=== PATIENT | male | born 1960 | race Caucasian/White ===

== ENCOUNTER 2017-11-29 04:59 | Emergency (ER) | payer BC, OTHER ==
[2017-11-29] MEDS ORDERED: DOXYCYCLINE HYCLATE 100 MG CAPSULE PO ONE ×2 (05:19→05:37)
[2017-11-29 05:20] VITALS: BP 138/78; PULSE 67; TEMP 97.9; BMI 24.3
--- NOTE | 2017-11-29 05:22 | PDOC ---
History of Present Illness - General History Source: Patient Exam Limitations: No Limitations - History of Present Illness Initial Comments: 11/29/17 05:22 The patient is a 57 year old male, with a significant PMH of HTN and past ID (s/ p stent) who presents to the emergency department for evaluation of ticks. The patient reports fishing today with his friends and states he had to walk through grass at about [place]. He reports pulling 2 ticks off of him at the fishing site but noticed another one still attached on his left thigh at home, prompting his visit. The patient notes he also went fishing on Saturday and pulled multiple ticks off of his body at the site and at home throughout the night. The patient states he is outdoors very often. The patient denies chest pain, shortness of breath, headache and dizziness. Denies fever, chills, nausea, vomit, diarrhea and constipation. Denies dysuria, frequency, urgency and hematuria. Allergies: NKA Past surgical history: Cardiac stent placement. Social history: Current everyday smoker. No reported alcohol or drug use. PCP: Dr. Smith <Marino Jackson - Last Filed: 11/29/17 05:22> - General History Source: Patient Exam Limitations: No Limitations <Marino Yang - Last Filed: 11/29/17 05:26> - General Chief Complaint: Bite Stated Complaint: TICK Time Seen by Provider: 11/29/17 05:05 Past History <Marino Jackson - Last Filed: 11/29/17 05:22> - Past Medical History Cardiac Disorders: Yes HTN: Yes Hypercholesterolemia: Yes - Surgical History Cardiac Surgery: Yes - Suicide/Smoking/Psychosocial Hx Smoking History: Current every day smoker Have you smoked in the past 12 months: No Number of Cigarettes Smoked Daily: 40 Hx Alcohol Use: No Drug/Substance Use Hx: No Substance Use Type: None <Marino Yang - Last Filed: 11/29/17 05:26> - Past Medical History Allergies/Adverse Reactions: Allergies Allergy/AdvReac Type Severity Reaction Status Date / Time No Known Allergies Allergy Verified 11/29/17 05:21 Home Medications: Ambulatory Orders Bacitracin 30 gm TP BID #1 oint...g. 09/04/15 Review of Systems - Review of Systems Able to Perform ROS?: Yes Comments:: 11/29/17 05:22 GENERAL/CONSTITUTIONAL: No fever or chills. No weakness. HEAD, EYES, EARS, NOSE AND THROAT: No change in vision. No ear pain or discharge. No sore throat. CARDIOVASCULAR: No chest pain or shortness of breath. RESPIRATORY: No cough, wheezing, or hemoptysis. GASTROINTESTINAL: No nausea, vomiting, diarrhea or constipation. GENITOURINARY: No dysuria, frequency, or change in urination. MUSCULOSKELETAL: No joint or muscle swelling or pain. No neck or back pain. SKIN: (+) Tick embedded in left thigh. NEUROLOGIC: No headache, vertigo, loss of consciousness, or change in strength/ sensation. ENDOCRINE: No increased thirst. No abnormal weight change. HEMATOLOGIC/LYMPHATIC: No anemia, easy bleeding, or history of blood clots. ALLERGIC/IMMUNOLOGIC: No hives or skin allergy. <Marino Jackson - Last Filed: 11/29/17 05:22> *Physical Exam - Vital Signs Last Vital Signs Temp Pulse Resp BP Pulse Ox 97.9 F 67 20 138/78 98 11/29/17 05:05 11/29/17 05:05 11/29/17 05:05 11/29/17 05:05 11/29/17 05:05 - Physical Exam Comments: 11/29/17 05:22 GENERAL: Awake, alert, and fully oriented, in no acute distress HEAD: No signs of trauma EYES: PERRLA, EOMI, sclera anicteric, conjunctiva clear ENT: Auricles normal inspection, hearing grossly normal, nares patent, oropharynx clear without exudates. Moist mucosa NECK: Normal ROM, supple, no lymphadenopathy, JVD, or masses EXTREMITIES: Normal range of motion, no edema. No clubbing or cyanosis. No cords, erythema, or tenderness NEUROLOGICAL: Cranial nerves II through XII grossly intact. Normal speech, normal gait SKIN: (+) [place] tick embedded into left proximal thigh. Tick not engorged. No target lesion. . Warm, Dry, normal turgor, no rashes noted. <Marino Jackson - Last Filed: 11/29/17 05:22> Medical Decision Making - Medical Decision Making 11/29/17 05:23 A portion of this note was documented by scribe services under my direction. I have reviewed the details of the note, within reason, and agree with the documentation with the following case summary and management plan written by me. Patient treated in the ED. Nursing notes are reviewed and incorporated into the medical decision-making. Vital signs reviewed. Peripheral IV access obtained by the nurse, laboratory studies are drawn and sent, reviewed and interpreted by myself. Vital Signs Temp Pulse Resp BP Pulse Ox 97.9 F 67 20 138/78 98 11/29/17 05:05 11/29/17 05:05 11/29/17 05:05 11/29/17 05:05 11/29/17 05:05 57-year-old male with past medical history of hypertension, coronary disease status post stent presents with tick bite the left proximal thigh. Patient reports approximate 4 days ago that he was fishing and went through high grass. Noticed that that they that he had approximately doesn't takes that removed. However today, patient noted that he had a deer tick in his left thigh. There is no rash and the patient has no other symptoms such as arthritis, palpitations , lightheadedness or other neurological cardiac sequelae. There is no target- like rash. The tick was not engorged. The tick was successfully removed with a tweezer. Given that the patient had a deer tick and had an attachment likely greater than 36 hours, patient was given 200 mg of doxycycline prophylaxis. Patient was given counseling on regards to safe practices in regards to going out endemic areas. Patient verbalizes and agrees with plan. I discussed the physical exam findings, ancillary test results and final diagnoses with the patient. I answered all of the patient's questions. The patient was satisfied with the care received and felt comfortable with the discharge plan and treatment plan. The patient will call their primary care physician within 24 hours to arrange follow-up and will return to the Emergency Department with any new, persistant or worsening symptoms. <Marino Yang - Last Filed: 11/29/17 05:26> *DC/Admit/Observation/Transfer - Attestations Scribe Attestion: 11/29/17 05:23 Documentation prepared by Marino Jackson, acting as administrative medical director for Marino Yang MD. <Marino Jackson - Last Filed: 11/29/17 05:22> - Discharge Dispostion Decision to Admit order: No <Marino Yang - Last Filed: 11/29/17 05:26> Diagnosis at time of Disposition: Tick bite Qualifiers: Encounter type: initial encounter Qualified Code(s): W57.XXXA - Bitten or stung by nonvenomous insect and other nonvenomous arthropods, initial encounter - Discharge Dispostion Disposition: HOME Condition at time of disposition: Good - Referrals Referrals: Jose Cruz Smith MD [Primary Care Provider] - - Patient Instructions Printed Discharge Instructions: How to Remove a Tick Additional Instructions: You have had a tick removed. You have also received the prophylactic antibiotic doxycyline. Please be cautious the next time you go out. - Post Discharge Activity
== END 2017-11-29 05:46 | disposition home or self-care (01) ==
LOC: JER 04:59
DX: S70.362A Insect bite (nonvenomous), left thigh, initial encounter (principal); W57.XXXA Bitten or stung by nonvenomous insect and other nonvenomous arthropods, initial encounter; Y93.89 Activity, other specified; Y92.9 Unspecified place or not applicable; I25.2 Old myocardial infarction; I10 Essential (primary) hypertension
CPT/HCPCS: 99281-25

== ENCOUNTER 2020-09-11 04:30 | Emergency (ER) | payer SELFPAY ==
[2020-09-11] MEDS ORDERED: metroNIDAZOLE 250 MG TABLET PO ONE (05:20)
[2020-09-11] MEDS ORDERED: PENICILLIN V POTASSIUM 500 MG TABLET PO ONE (05:21)
[2020-09-11] MEDS ORDERED: ACETAMINOPHEN 325 MG TABLET (FP) PO ONE (05:21)
[2020-09-11 05:33] VITALS: BP 159/82; PULSE 89; TEMP 98.9; BMI 26.6
[2020-09-11] MEDS ORDERED: ACETAMINOPHEN 325 MG TABLET (FP) ONE (06:01)
[2020-09-11] MEDS ORDERED: oxyCODONE HCL 5 MG TABLET PO ONE (06:11)
[2020-09-11] MEDS ORDERED: oxyCODONE HCL 5 MG TABLET ONE (06:14)
== END 2020-09-11 06:22 | disposition home or self-care (01) ==
LOC: JER 04:30
DX: K02.9 Dental caries, unspecified (principal); K04.7 Periapical abscess without sinus
CPT/HCPCS: 99283-25

== ENCOUNTER 2020-12-11 19:22 | Inpatient (IN) | payer OTHER ==
[2020-12-11 20:35] LABS: BASO % 1.1 % (0-2.0); EOS % 8.1 % (0-4.5); HEMATOCRIT 39.7 % (35.4-49); HEMOGLOBIN 13.2 GM/dL (11.7-16.9); LYMPH % 21.6 % (8-40); MCHC 33.2 g/dl (32.0-35.9); MEAN CELL VOLUME 90.3 fl (80-96); MEAN PLT VOLUME 7.4 fl (7.5-11.1); MONO % 7.9 % (3.8-10.2); NEUT % 61.3 % (42.8-82.8); PLATELET COUNT 243 10^3/uL (134-434); RBC 4.39 M/mm3 (4.00-5.60); RDW 14.7 % (11.9-15.9); WHITE BLOOD COUNT 9.4 K/mm3 (4.0-10.0)
[2020-12-11 20:42] LABS: INR 0.97 (0.83-1.09); PROTHROMBIN TIME (PATIENT) 11.7 SEC (9.7-13.0)
[2020-12-11 20:45] LABS: ACTIVATED PTT 25.2 SECONDS (25.2-36.5)
[2020-12-11 20:55] LABS: CHLORIDE 104 mmol/L (98-107); SODIUM 137 mmol/L (136-145)
[2020-12-11 20:56] LABS: CALCIUM 8.9 mg/dL (8.5-10.1)
[2020-12-11 20:57] LABS: ALBUMIN 3.4 g/dl (3.4-5.0); ANION GAP 5 MMOL/L (8-16); BLOOD UREA NITROGEN 13.7 mg/dL (7-18); CO2 28 mmol/L (21-32); GLUCOSE,RANDOM 100 mg/dL (74-106)
[2020-12-11 21:00] LABS: SGOT/AST 16 U/L (15-37); SGPT/ALT 15 U/L (13-61)
[2020-12-11 21:02] LABS: TOT PROT 8.1 g/dl (6.4-8.2)
[2020-12-11 21:03] LABS: ALK PHOS 107 U/L (45-117)
[2020-12-11] MEDS ORDERED: diphenhydrAMINE HCL 25 MG CAPSULE (FP) PO ONE ×2 (21:25→21:26)
[2020-12-11 22:06] LABS: BILIRUBIN,TOTAL 0.3 mg/dL (0.2-1)
[2020-12-11] MEDS ORDERED: AZITHROMYCIN IVPB 500 MG in DEXTROSE 5%-WATER - 250 ML IVPB ONE (22:09)
[2020-12-11] MEDS ORDERED: CEFTRIAXONE 1 GM in DEXTROSE 5%-WATER - 50 ML IVPB ONE (22:09)
[2020-12-11] MEDS ORDERED: AZITHROMYCIN IVPB 500 MG/250 ML BAG IVPB ONE (22:46)
[2020-12-11] MEDS ORDERED: CEFTRIAXONE 1 GM/50 ML BAG ONE (22:46)
[2020-12-12] MEDS ORDERED: ALBUTEROL SO4 HFA INHALER IH PRN (00:42)
[2020-12-12] MEDS: BUDESONIDE/FORMETEROL FUMARATE 80/4.5 mcg INHALER IH SCH ×3 (01:57→21:20)
[2020-12-12 08:05] LABS: BASO % 0.7 % (0-2.0); EOS % 6.8 % (0-4.5); HEMATOCRIT 37.4 % (35.4-49); HEMOGLOBIN 12.5 GM/dL (11.7-16.9); LYMPH % 16.8 % (8-40); MCH 30.1 pg (25.7-33.7); MCHC 33.5 g/dl (32.0-35.9); MEAN CELL VOLUME 89.9 fl (80-96); MEAN PLT VOLUME 7.6 fl (7.5-11.1); MONO % 7.8 % (3.8-10.2); NEUT % 67.9 % (42.8-82.8); PLATELET COUNT 224 10^3/uL (134-434); RBC 4.16 M/mm3 (4.00-5.60); RDW 14.8 % (11.9-15.9); WHITE BLOOD COUNT 7.5 K/mm3 (4.0-10.0)
[2020-12-12 08:30] LABS: ALBUMIN 3.2 g/dl (3.4-5.0)
[2020-12-12 08:31] LABS: BILIRUBIN,TOTAL 0.7 mg/dL (0.2-1); BLOOD UREA NITROGEN 10.1 mg/dL (7-18); CALCIUM 8.8 mg/dL (8.5-10.1); TOT PROT 7.6 g/dl (6.4-8.2)
[2020-12-12 08:32] LABS: MAGNESIUM 2.2 mg/dL (1.8-2.4)
[2020-12-12 08:33] LABS: CREATININE 0.8 mg/dL (0.55-1.3); PHOSPHOROUS 3.3 mg/dL (2.5-4.9)
[2020-12-12] MEDS ORDERED: PT OWN MED DRAWER 7, Y5N ONE (09:10)
[2020-12-12] MEDS: ENOXAPARIN NA (PORCINE) 40 MG/0.4 ML DISP.SYRIN SQ SCH (09:11)
[2020-12-12] MEDS: LISINOPRIL 20 MG TABLET PO SCH (09:12)
[2020-12-12] MEDS ORDERED: DEXTROSE 5%-WATER 100 ML IVPB ONE (12:39)
[2020-12-12] MEDS: CEFTRIAXONE 2 GM in DEXTROSE 5%-WATER 2 GM/100 ML BAG IVPB SCH (12:46)
[2020-12-12] MEDS: AZITHROMYCIN IVPB 500 MG/250 ML BAG IVPB SCH (12:47)
[2020-12-12 14:21] VITALS: BMI 23.1
[2020-12-12] MEDS: ACETAMINOPHEN 325 MG TABLET (FP) PO PRN ×2 (17:57→21:29)
[2020-12-12] MEDS ORDERED: diazePAM 5 MG TABLET PO PRN (18:54)
[2020-12-13 08:14] LABS: BASO % 0.8 % (0-2.0); EOS % 8.1 % (0-4.5); HEMATOCRIT 37.1 % (35.4-49); HEMOGLOBIN 12.5 GM/dL (11.7-16.9); LYMPH % 22.4 % (8-40); MCH 30.3 pg (25.7-33.7); MCHC 33.6 g/dl (32.0-35.9); MEAN CELL VOLUME 90.2 fl (80-96); MEAN PLT VOLUME 7.4 fl (7.5-11.1); MONO % 8.7 % (3.8-10.2); PLATELET COUNT 228 10^3/uL (134-434); RBC 4.12 M/mm3 (4.00-5.60); RDW 15.2 % (11.9-15.9); WHITE BLOOD COUNT 6.7 K/mm3 (4.0-10.0)
[2020-12-13 08:40] LABS: ALBUMIN 3.2 g/dl (3.4-5.0); BLOOD UREA NITROGEN 10.3 mg/dL (7-18); CALCIUM 8.5 mg/dL (8.5-10.1); MAGNESIUM 2.2 mg/dL (1.8-2.4)
[2020-12-13 08:43] LABS: CREATININE 0.9 mg/dL (0.55-1.3)
[2020-12-13 08:45] LABS: BILIRUBIN,TOTAL 0.5 mg/dL (0.2-1); TOT PROT 7.7 g/dl (6.4-8.2)
[2020-12-13] MEDS ORDERED: diazePAM 5 MG TABLET PO PRN (09:27)
[2020-12-13] MEDS: ENOXAPARIN NA (PORCINE) 40 MG/0.4 ML DISP.SYRIN SQ SCH (09:43)
[2020-12-13] MEDS ORDERED: DEXTROSE 5%-WATER 100 ML IVPB ONE (09:43)
[2020-12-13] MEDS: CEFTRIAXONE 2 GM in DEXTROSE 5%-WATER 2 GM/100 ML BAG IVPB SCH (09:44)
[2020-12-13] MEDS: LISINOPRIL 20 MG TABLET PO SCH (09:44)
[2020-12-13] MEDS: BUDESONIDE/FORMETEROL FUMARATE 80/4.5 mcg INHALER IH SCH ×2 (09:44→21:47)
[2020-12-13] MEDS: AZITHROMYCIN IVPB 500 MG/250 ML BAG IVPB SCH (10:41)
[2020-12-13 12:00] LABS: HIV INTERPRETATION NEGATIVE (NEGATIVE)
[2020-12-13] MEDS: ACETAMINOPHEN 325 MG TABLET (FP) PO PRN (13:40)
[2020-12-14 08:30] LABS: BASO % 0.9 % (0-2.0); EOS % 7.4 % (0-4.5); HEMATOCRIT 38.9 % (35.4-49); HEMOGLOBIN 12.9 GM/dL (11.7-16.9); LYMPH % 18.6 % (8-40); MCH 30.1 pg (25.7-33.7); MCHC 33.3 g/dl (32.0-35.9); MEAN CELL VOLUME 90.5 fl (80-96); MEAN PLT VOLUME 7.4 fl (7.5-11.1); MONO % 8.3 % (3.8-10.2); NEUT % 64.8 % (42.8-82.8); PLATELET COUNT 233 10^3/uL (134-434); RBC 4.29 M/mm3 (4.00-5.60); RDW 14.8 % (11.9-15.9); WHITE BLOOD COUNT 6.8 K/mm3 (4.0-10.0)
[2020-12-14 08:47] LABS: CALCIUM 8.6 mg/dL (8.5-10.1)
[2020-12-14 08:48] LABS: BLOOD UREA NITROGEN 12.1 mg/dL (7-18); MAGNESIUM 2.1 mg/dL (1.8-2.4)
[2020-12-14 08:51] LABS: ALBUMIN 3.4 g/dl (3.4-5.0)
[2020-12-14 08:52] LABS: BILIRUBIN,TOTAL 1.2 mg/dL (0.2-1); TOT PROT 8.1 g/dl (6.4-8.2)
[2020-12-14 08:53] LABS: CREATININE 0.8 mg/dL (0.55-1.3)
[2020-12-14] MEDS ORDERED: PT OWN MED DRAWER 7, Y5N ONE ×2 (09:30→14:27)
[2020-12-14] MEDS ORDERED: DEXTROSE 5%-WATER 100 ML IVPB ONE (09:57)
[2020-12-14] MEDS: CEFTRIAXONE 2 GM in DEXTROSE 5%-WATER 2 GM/100 ML BAG IVPB SCH (10:05)
[2020-12-14] MEDS: LISINOPRIL 20 MG TABLET PO SCH (10:05)
[2020-12-14] MEDS: ENOXAPARIN NA (PORCINE) 40 MG/0.4 ML DISP.SYRIN SQ SCH (10:06)
[2020-12-14] MEDS: AZITHROMYCIN IVPB 500 MG/250 ML BAG IVPB SCH (10:46)
[2020-12-14] MEDS: BUDESONIDE/FORMETEROL FUMARATE 80/4.5 mcg INHALER IH SCH ×2 (10:47→21:23)
[2020-12-14] MEDS ORDERED: diazePAM 5 MG TABLET PO PRN ×3 (11:23→12:08)
[2020-12-14] MEDS: diazePAM 5 MG TABLET PO PRN (21:21)
[2020-12-14] MEDS: MELATONIN 5 MG TABLETS PO SCH (21:24)
[2020-12-15 08:24] LABS: BASO % 0.8 % (0-2.0); EOS % 9.5 % (0-4.5); HEMATOCRIT 41.1 % (35.4-49); HEMOGLOBIN 13.3 GM/dL (11.7-16.9); LYMPH % 19.5 % (8-40); MCH 29.7 pg (25.7-33.7); MCHC 32.4 g/dl (32.0-35.9); MEAN CELL VOLUME 91.5 fl (80-96); MEAN PLT VOLUME 7.9 fl (7.5-11.1); NEUT % 61.2 % (42.8-82.8); PLATELET COUNT 250 10^3/uL (134-434); RBC 4.49 M/mm3 (4.00-5.60); RDW 14.8 % (11.9-15.9); WHITE BLOOD COUNT 6.9 K/mm3 (4.0-10.0)
[2020-12-15 08:38] LABS: CALCIUM 8.6 mg/dL (8.5-10.1)
[2020-12-15] MEDS ORDERED: DEXTROSE 5%-WATER 100 ML IVPB ONE (08:38)
[2020-12-15 08:39] LABS: ALBUMIN 3.4 g/dl (3.4-5.0); BLOOD UREA NITROGEN 15.1 mg/dL (7-18); MAGNESIUM 2.2 mg/dL (1.8-2.4)
[2020-12-15 08:41] LABS: CREATININE 0.9 mg/dL (0.55-1.3)
[2020-12-15 08:44] LABS: BILIRUBIN,TOTAL 0.2 mg/dL (0.2-1)
[2020-12-15] MEDS: diazePAM 5 MG TABLET PO PRN ×3 (10:02→23:41)
[2020-12-15] MEDS: ENOXAPARIN NA (PORCINE) 40 MG/0.4 ML DISP.SYRIN SQ SCH (10:03)
[2020-12-15] MEDS: AZITHROMYCIN IVPB 500 MG/250 ML BAG IVPB SCH (10:04)
[2020-12-15] MEDS: CEFTRIAXONE 2 GM in DEXTROSE 5%-WATER 2 GM/100 ML BAG IVPB SCH (10:04)
[2020-12-15] MEDS: LISINOPRIL 20 MG TABLET PO SCH (10:04)
[2020-12-15] MEDS: BUDESONIDE/FORMETEROL FUMARATE 80/4.5 mcg INHALER IH SCH ×2 (10:20→21:24)
[2020-12-15] MEDS: MELATONIN 5 MG TABLETS PO SCH ×2 (21:21→22:42)
[2020-12-15] MEDS: CEFUROXIME AXETIL 500 MG TABLET PO SCH (21:23)
[2020-12-16] MEDS: diazePAM 5 MG TABLET PO PRN (06:33)
[2020-12-16 07:25] VITALS: BP 110/64; PULSE 81; TEMP 97.9
[2020-12-16 08:33] LABS: BASO % 0.8 % (0-2.0); EOS % 9.1 % (0-4.5); HEMOGLOBIN 13.1 GM/dL (11.7-16.9); LYMPH % 17.9 % (8-40); MCH 29.7 pg (25.7-33.7); MCHC 32.8 g/dl (32.0-35.9); MEAN CELL VOLUME 90.7 fl (80-96); MEAN PLT VOLUME 7.8 fl (7.5-11.1); MONO % 8.5 % (3.8-10.2); NEUT % 63.7 % (42.8-82.8); PLATELET COUNT 245 10^3/uL (134-434); RBC 4.41 M/mm3 (4.00-5.60); RDW 14.8 % (11.9-15.9); WHITE BLOOD COUNT 6.5 K/mm3 (4.0-10.0)
[2020-12-16 08:58] LABS: ALBUMIN 3.4 g/dl (3.4-5.0); BLOOD UREA NITROGEN 13.9 mg/dL (7-18); MAGNESIUM 2.2 mg/dL (1.8-2.4)
[2020-12-16] MEDS ORDERED: PT OWN MED DRAWER 7, Y5N ONE (08:59)
[2020-12-16 09:00] LABS: BILIRUBIN,TOTAL 0.3 mg/dL (0.2-1)
[2020-12-16 09:01] LABS: CREATININE 0.8 mg/dL (0.55-1.3)
[2020-12-16] MEDS: CEFUROXIME AXETIL 500 MG TABLET PO SCH (09:49)
[2020-12-16] MEDS: ENOXAPARIN NA (PORCINE) 40 MG/0.4 ML DISP.SYRIN SQ SCH (09:50)
[2020-12-16] MEDS: BUDESONIDE/FORMETEROL FUMARATE 80/4.5 mcg INHALER IH SCH (09:50)
[2020-12-16] MEDS: LISINOPRIL 20 MG TABLET PO SCH (09:50)
== END 2020-12-16 12:24 | disposition home or self-care (01) | DRG 139 ==
LOC: JER 19:22 → JERBED 22:10 → J8W 12-12
PROVIDERS: ADMIT Internal Medicine; ATTEND Nurse Practitioner Family
DX: J18.9 Pneumonia, unspecified organism (principal); I10 Essential (primary) hypertension; E78.5 Hyperlipidemia, unspecified; E78.00 Pure hypercholesterolemia, unspecified; R63.4 Abnormal weight loss; I25.10 Atherosclerotic heart disease of native coronary artery without angina pectoris; Z68.23 Body mass index [BMI] 23.0-23.9, adult; J44.9 Chronic obstructive pulmonary disease, unspecified; F17.210 Nicotine dependence, cigarettes, uncomplicated; I25.2 Old myocardial infarction; J44.1 Chronic obstructive pulmonary disease with (acute) exacerbation; A15.9 Respiratory tuberculosis unspecified; R22.0 Localized swelling, mass and lump, head; Z95.5 Presence of coronary angioplasty implant and graft
CPT/HCPCS: 36415; 70486-TC; 71260-TC; 74178-TC; 80053; 83735; 84100; 84443; 84484; 85025; 85610; 85730; 86480; 86682; 87070; 87116; 87205; 87206; 87305; 87389; 87449; 87899; 88104; 88305-TC; 93005; 93010; 94010; 99285-25; C9803; Q9967; U0003; U0005

== ENCOUNTER 2021-09-09 21:47 | Emergency (ER) | payer OTHER ==
[2021-09-09 21:54] VITALS: BP 134/80; PULSE 86; TEMP 97.9; BMI 24.3
[2021-09-09] MEDS ORDERED: DOXYCYCLINE HYCLATE 100 MG CAPSULE PO ONE ×2 (22:27→22:34)
== END 2021-09-09 22:43 | disposition home or self-care (01) ==
LOC: JER 21:47
DX: S80.862A Insect bite (nonvenomous), left lower leg, initial encounter (principal); W57.XXXA Bitten or stung by nonvenomous insect and other nonvenomous arthropods, initial encounter
CPT/HCPCS: 99283-25

== ENCOUNTER 2022-07-14 12:22 | Emergency (ER) | payer OTHER ==
[2022-07-14 12:31] VITALS: BP 141/59; PULSE 82; RESP 16; TEMP 97.2; BMI 25.1
[2022-07-14] MEDS ORDERED: DEXAMETHASONE SOD PHOSPHATE 10 MG/1 ML VIAL IVPUSH ONE (12:48)
[2022-07-14] MEDS ORDERED: DEXAMETHASONE SOD PHOSPHATE 10 MG/1 ML VIAL ONE (13:01)
[2022-07-14 13:37] LABS: BASO % 0.5 % (0-2.0); EOS % 2.2 % (0-4.5); HEMATOCRIT 34.1 % (35.4-49); HEMOGLOBIN 11.3 GM/dL (11.7-16.9); LYMPH % 19.3 % (8-40); MCHC 33.1 g/dl (32.0-35.9); MEAN CELL VOLUME 90.5 fl (80-96); MEAN PLT VOLUME 6.8 fl (7.5-11.1); MONO % 8.1 % (3.8-10.2); NEUT % 69.9 % (42.8-82.8); PLATELET COUNT 464 10^3/uL (134-434); RBC 3.76 M/mm3 (4.00-5.60); RDW 14.3 % (11.9-15.9); WHITE BLOOD COUNT 9.1 K/mm3 (4.0-10.0)
[2022-07-14 13:51] LABS: BLOOD UREA NITROGEN 17.6 mg/dL (7-18); CALCIUM 9.1 mg/dL (8.5-10.1)
[2022-07-14 13:52] LABS: ALBUMIN 3.1 g/dl (3.4-5.0)
[2022-07-14 13:56] LABS: BILIRUBIN,TOTAL 0.7 mg/dL (0.2-1); TOT PROT 8.6 g/dl (6.4-8.2)
== END 2022-07-14 14:26 | disposition home or self-care (01) ==
LOC: JERFT 12:22 → JER 12:22 → JERFT 14:26
PROC: 3E0333Z Introduction of Anti-inflammatory into Peripheral Vein, Percutaneous Approach (ICD-10-PCS; principal; 2022-07-14)
PROC: 3E033GC Introduction of Other Therapeutic Substance into Peripheral Vein, Percutaneous Approach (ICD-10-PCS; 2022-07-14)
DX: R22.0 Localized swelling, mass and lump, head (principal); T46.4X5A Adverse effect of angiotensin-converting-enzyme inhibitors, initial encounter
CPT/HCPCS: 36415; 80053; 85025; 99284-25; J1100

== ENCOUNTER 2022-07-14 16:29 | Inpatient (IN) | payer OTHER ==
[2022-07-14] MEDS ORDERED: FAMOTIDINE 20 MG TABLET PO ONE (16:47)
[2022-07-14 16:48] VITALS: BMI 25.1
[2022-07-14] MEDS ORDERED: FAMOTIDINE 20 MG/50 ML IVPB 20 MG/50 ML MG IVPB ONE ×2 (17:02→17:16)
[2022-07-14 18:13] LABS: BLOOD UREA NITROGEN 18.3 mg/dL (7-18); CALCIUM 9.1 mg/dL (8.5-10.1)
[2022-07-14 18:14] LABS: BASO % 0.1 % (0-2.0); EOS % 0.1 % (0-4.5); HEMATOCRIT 35.9 % (35.4-49); HEMOGLOBIN 11.7 GM/dL (11.7-16.9); LYMPH % 4.4 % (8-40); MCH 29.4 pg (25.7-33.7); MCHC 32.5 g/dl (32.0-35.9); MEAN CELL VOLUME 90.4 fl (80-96); MEAN PLT VOLUME 6.9 fl (7.5-11.1); MONO % 0.7 % (3.8-10.2); NEUT % 94.7 % (42.8-82.8); PLATELET COUNT 503 10^3/uL (134-434); RBC 3.97 M/mm3 (4.00-5.60); RDW 14.8 % (11.9-15.9)
[2022-07-14 18:16] LABS: CREATININE 1.6 mg/dL (0.55-1.3)
[2022-07-14 18:18] LABS: BILIRUBIN,TOTAL 0.3 mg/dL (0.2-1); TOT PROT 8.4 g/dl (6.4-8.2)
[2022-07-14 18:22] LABS: INR 1.12 (0.83-1.09); PROTHROMBIN TIME (PATIENT) 12.9 SEC (9.7-13.0)
[2022-07-14 18:25] LABS: ACTIVATED PTT 27.9 SECONDS (25.2-36.5)
[2022-07-14 19:26] LABS: ANISOCYTOSIS 2+; MACROCYTOSIS 0; OVALOCYTE 0; TARGET CELLS 1+
[2022-07-14 19:48] VITALS: RESP 18
[2022-07-14] MEDS ORDERED: diphenhydrAMINE HCL 25 MG CAPSULE (FP) PO PRN (23:16)
[2022-07-14 23:38] VITALS: TEMP 98
[2022-07-14] MEDS: diazePAM 5 MG TABLET PO ONE (23:58)
[2022-07-15] MEDS: diazePAM 5 MG TABLET PO ONE (00:03)
[2022-07-15] MEDS ORDERED: methylPREDNISolone NA SUCC 40 MG/1 ML VIAL IVPB SCH (02:00)
[2022-07-15] MEDS ORDERED: methylPREDNISolone NA SUCC 40 MG/1 ML VIAL IVPUSH SCH (08:30)
[2022-07-15 09:25] LABS: HEMATOCRIT 34.1 % (35.4-49); HEMOGLOBIN 11.5 GM/dL (11.7-16.9); MCH 30.3 pg (25.7-33.7); MCHC 33.7 g/dl (32.0-35.9); MEAN CELL VOLUME 89.7 fl (80-96); MEAN PLT VOLUME 6.6 fl (7.5-11.1); PLATELET COUNT 460 10^3/uL (134-434); RBC 3.79 M/mm3 (4.00-5.60); RDW 14.3 % (11.9-15.9); WHITE BLOOD COUNT 10.3 K/mm3 (4.0-10.0)
[2022-07-15 09:54] LABS: CALCIUM 9.4 mg/dL (8.5-10.1)
[2022-07-15 09:55] LABS: ALBUMIN 2.9 g/dl (3.4-5.0); BLOOD UREA NITROGEN 19.7 mg/dL (7-18)
[2022-07-15 10:00] LABS: BILIRUBIN,TOTAL 0.3 mg/dL (0.2-1); TOT PROT 8.4 g/dl (6.4-8.2)
[2022-07-15] MEDS ORDERED: ENOXAPARIN NA (PORCINE) 40 MG/0.4 ML DISP.SYRIN SQ SCH (10:00)
[2022-07-15] MEDS ORDERED: amLODIPine BESYLATE 10 MG TABLET (FP) PO SCH (10:00)
[2022-07-15] MEDS ORDERED: FAMOTIDINE 20 MG TABLET PO SCH (10:00)
[2022-07-15] MEDS ORDERED: FLUTICASONE/UMECLIDIN/VILANTER(200-62.5-25 TRELEGY ELLIPTA) INAHLER IH SCH ×2 (10:00)
[2022-07-15] MEDS ORDERED: FLUTICASONE/UMECLIDIN/VILANTER(100-62.5-25 TRELEGY ELLIPTA) INAHLER IH SCH (10:00)
[2022-07-15 11:05] LABS: ANISOCYTOSIS 0; HELMET CELLS 0; HOWELL-JOLLY BODIES 0; MACROCYTOSIS 0; OVALOCYTE 0; ROULEAU 0; SICKELED CELLS 0; TARGET CELLS 0; TEAR DROP CELLS 0; TOXIC GRANULATION 0
[2022-07-15 12:25] VITALS: BP 126/60; PULSE 92
== END 2022-07-15 11:40 | disposition home or self-care (01) | DRG 811 ==
LOC: JER 16:29 → JERBED 16:58 → J5S 21:47
PROVIDERS: ADMIT Internal Medicine; ATTEND Internal Medicine
DX: T78.3XXA Angioneurotic edema, initial encounter (principal); I25.10 Atherosclerotic heart disease of native coronary artery without angina pectoris; J44.9 Chronic obstructive pulmonary disease, unspecified; I10 Essential (primary) hypertension; T46.4X5A Adverse effect of angiotensin-converting-enzyme inhibitors, initial encounter
CPT/HCPCS: 36415; 71046-TC-FY; 80053; 85025; 85610; 85730; 86850; 86900; 86901; 93005; 93010; 99285-25; C9803-CS; U0003; U0005

== ENCOUNTER 2022-10-04 04:51 | Emergency (ER) | payer OTHER ==
[2022-10-04 04:57] VITALS: BP 160/90; PULSE 79; RESP 16; TEMP 98.1; BMI 24.7
== END 2022-10-04 05:23 | disposition home or self-care (01) ==
LOC: JER 04:51
DX: Z76.0 Encounter for issue of repeat prescription (principal)
CPT/HCPCS: 99282-25

== ENCOUNTER 2022-11-01 09:22 | Inpatient (IN) | payer OTHER ==
[2022-11-01] MEDS ORDERED: ALBUTEROL SO4 2.5/IPRATROPIUM 0.5 INH SOL 3 ML VIAL.NEB. NEB ONE ×2 (09:25→09:49)
[2022-11-01] MEDS ORDERED: ACETAMINOPHEN 1000 MG/100 ML BAG IVPB ONE (09:49)
[2022-11-01] MEDS ORDERED: MAGNESIUM SULF 50% (8.12 MEQ/2 ML-1 GM VIAL) IVPB ONE (09:50)
[2022-11-01 09:53] VITALS: BMI 22.8
[2022-11-01] MEDS ORDERED: CEFTRIAXONE 1,000 MG in DEXTROSE 5%-WATER - 50 ML IVPB ONE (10:04)
[2022-11-01] MEDS ORDERED: ACETAMINOPHEN INJECTION 100 ML IVPB ONE (10:24)
[2022-11-01] MEDS ORDERED: cefTRIAXone SODIUM 1 GM VIAL ONE (10:24)
[2022-11-01] MEDS ORDERED: LORazepam 2 MG/ML SDV VIAL IVPUSH ONE (10:27)
[2022-11-01 11:12] LABS: VENOUS BASE EXCESS 0.1 mmol/L (-2-2); VENOUS O2 SATURATION 58.7 % (70-80); VENOUS PCO2 57.4 mmHg (38-52); VENOUS PH 7.303 (7.310-7.410)
[2022-11-01 11:17] LABS: BASO % 0.2 % (0-2.0); EOS % 0.6 % (0-4.5); HEMATOCRIT 39.1 % (35.4-49); HEMOGLOBIN 13.8 GM/dL (11.7-16.9); LYMPH % 6.9 % (8-40); MCH 31.9 pg (25.7-33.7); MCHC 35.3 g/dl (32.0-35.9); MEAN CELL VOLUME 90.3 fl (80-96); MEAN PLT VOLUME 7.7 fl (7.5-11.1); MONO % 4.6 % (3.8-10.2); NEUT % 87.7 % (42.8-82.8); PLATELET COUNT 277 10^3/uL (134-434); RBC 4.33 M/mm3 (4.00-5.60); RDW 14.1 % (11.9-15.9); WHITE BLOOD COUNT 10.8 K/mm3 (4.0-10.0)
[2022-11-01 11:18] LABS: INR 0.99 (0.83-1.09); PROTHROMBIN TIME (PATIENT) 11.5 SEC (9.7-13.0)
[2022-11-01 11:21] LABS: ACTIVATED PTT 28.9 SECONDS (25.2-36.5)
[2022-11-01 11:26] LABS: POTASSIUM 4.4 mmol/L (3.5-5.1)
[2022-11-01 11:28] LABS: ALBUMIN 3.6 g/dl (3.4-5.0); CALCIUM 9.2 mg/dL (8.5-10.1)
[2022-11-01 11:29] LABS: BLOOD UREA NITROGEN 9.5 mg/dL (7-18)
[2022-11-01 11:32] LABS: CREATININE 0.9 mg/dL (0.55-1.3)
[2022-11-01 11:33] LABS: BILIRUBIN,TOTAL 0.2 mg/dL (0.2-1); TOT PROT 8.6 g/dl (6.4-8.2)
[2022-11-01] MEDS ORDERED: FLUTICASONE/UMECLIDIN/VILANTER(100-62.5-25 TRELEGY ELLIPTA) INAHLER IH SCH (15:45)
[2022-11-01] MEDS ORDERED: ALBUTEROL SO4 HFA INHALER IH PRN (15:45)
[2022-11-01] MEDS ORDERED: ALBUTEROL SO4 2.5/IPRATROPIUM 0.5 INH SOL 3 ML VIAL.NEB. NEB SCH ×2 (19:26→20:00)
[2022-11-01] MEDS ORDERED: ACETAMINOPHEN 325 MG TABLET (FP) PO PRN (21:16)
[2022-11-01] MEDS ORDERED: KETOROLAC TROMETHAMINE 15 MG/ML VIAL IVPUSH PRN (21:16)
[2022-11-01] MEDS ORDERED: LORazepam 1 MG TABLET PO ONE (21:44)
[2022-11-02] MEDS: BUDESONIDE/FORMETEROL FUMARATE 80/4.5 mcg INHALER IH SCH ×2 (00:48→03:02)
[2022-11-02] MEDS ORDERED: methylPREDNISolone NA SUCC 40 MG/1 ML VIAL IVPUSH ONE (00:52)
[2022-11-02] MEDS ORDERED: guaiFENesin/CODEINE 5 ML UNIT-DOSE CUPS PO PRN (01:10)
[2022-11-02] MEDS ORDERED: ALBUTEROL SO4 2.5/IPRATROPIUM 0.5 INH SOL 3 ML VIAL.NEB. NEB ONE ×2 (01:10→01:53)
[2022-11-02] MEDS ORDERED: KETOROLAC TROMETHAMINE 15 MG/ML VIAL IVPUSH PRN (01:53)
[2022-11-02] MEDS ORDERED: ALBUTEROL SO4 HFA INHALER IH PRN (01:53)
[2022-11-02] MEDS ORDERED: morphine CARPU-JECT 2 MG/1 ML DISP.SYRIN IM ONE (01:53)
[2022-11-02 03:48] LABS: MAGNESIUM 4.3 mg/dL (1.8-2.4)
[2022-11-02 07:37] LABS: HEMATOCRIT 35.6 % (35.4-49); MCH 30.5 pg (25.7-33.7); MCHC 33.8 g/dl (32.0-35.9); MEAN CELL VOLUME 90.4 fl (80-96); MEAN PLT VOLUME 7.3 fl (7.5-11.1); PLATELET COUNT 265 10^3/uL (134-434); RBC 3.94 M/mm3 (4.00-5.60); RDW 14.4 % (11.9-15.9); WHITE BLOOD COUNT 12.4 K/mm3 (4.0-10.0)
[2022-11-02 07:50] LABS: POTASSIUM 4.6 mmol/L (3.5-5.1)
[2022-11-02 08:01] LABS: CALCIUM 8.4 mg/dL (8.5-10.1)
[2022-11-02 08:02] LABS: BLOOD UREA NITROGEN 17.2 mg/dL (7-18); MAGNESIUM 2.1 mg/dL (1.8-2.4)
[2022-11-02 08:05] LABS: CREATININE 0.8 mg/dL (0.55-1.3); PHOSPHOROUS 3.7 mg/dL (2.5-4.9)
[2022-11-02 08:06] LABS: TOT PROT 7.6 g/dl (6.4-8.2)
[2022-11-02 08:07] LABS: BILIRUBIN,TOTAL 0.3 mg/dL (0.2-1)
[2022-11-02] MEDS: ALBUTEROL SO4 2.5/IPRATROPIUM 0.5 INH SOL 3 ML VIAL.NEB. NEB SCH ×2 (08:35→11:57)
[2022-11-02 09:06] LABS: ANISOCYTOSIS 0; HELMET CELLS 0; HOWELL-JOLLY BODIES 0; MACROCYTOSIS 0; OVALOCYTE 0; ROULEAU 0; SICKELED CELLS 0; TARGET CELLS 0; TEAR DROP CELLS 0; TOXIC GRANULATION 0
[2022-11-02] MEDS: PANTOPRAZOLE SODIUM 40 MG VIAL IVPUSH SCH (09:52)
[2022-11-02] MEDS: ENOXAPARIN NA (PORCINE) 40 MG/0.4 ML DISP.SYRIN SQ SCH (09:52)
[2022-11-02] MEDS ORDERED: PANTOPRAZOLE SODIUM 40 MG VIAL IVPUSH SCH (10:00)
[2022-11-02] MEDS ORDERED: ENOXAPARIN NA (PORCINE) 40 MG/0.4 ML DISP.SYRIN SQ SCH (10:00)
[2022-11-02] MEDS ORDERED: methylPREDNISolone NA SUCC 40 MG/1 ML VIAL IVPUSH SCH ×2 (10:00)
[2022-11-02] MEDS ORDERED: BUDESONIDE/FORMETEROL FUMARATE 80/4.5 mcg INHALER IH SCH (10:00)
[2022-11-02] MEDS: CEFTRIAXONE 2 GM in DEXTROSE 5%-WATER 100 ML IVPB SCH (14:24)
[2022-11-02 14:37] LABS: HIV INTERPRETATION NEGATIVE (NEGATIVE)
[2022-11-02] MEDS: ACETAMINOPHEN 325 MG TABLET (FP) PO PRN (14:44)
[2022-11-02] MEDS: methylPREDNISolone NA SUCC 40 MG/1 ML VIAL IVPUSH SCH (18:49)
[2022-11-02] MEDS: guaiFENesin/CODEINE 5 ML UNIT-DOSE CUPS PO PRN (21:48)
[2022-11-02] MEDS: MELATONIN 1 MG TABLET PO SCH (23:26)
[2022-11-03] MEDS: methylPREDNISolone NA SUCC 40 MG/1 ML VIAL IVPUSH SCH ×3 (01:41→17:09)
[2022-11-03] MEDS: ALBUTEROL SO4 0.083% IH SOL 2.5 MG/3 ML VIAL.NEB. NEB PRN ×2 (08:05→20:00)
[2022-11-03 08:28] LABS: HEMATOCRIT 38.1 % (35.4-49); HEMOGLOBIN 12.7 GM/dL (11.7-16.9); MCH 30.3 pg (25.7-33.7); MCHC 33.4 g/dl (32.0-35.9); MEAN CELL VOLUME 90.9 fl (80-96); PLATELET COUNT 279 10^3/uL (134-434); RBC 4.19 M/mm3 (4.00-5.60); RDW 14.4 % (11.9-15.9); WHITE BLOOD COUNT 14.1 K/mm3 (4.0-10.0)
[2022-11-03 08:46] LABS: POTASSIUM 4.7 mmol/L (3.5-5.1)
[2022-11-03 08:50] LABS: BLOOD UREA NITROGEN 22.9 mg/dL (7-18)
[2022-11-03 08:51] LABS: CALCIUM 8.4 mg/dL (8.5-10.1); MAGNESIUM 2.2 mg/dL (1.8-2.4)
[2022-11-03 08:53] LABS: CREATININE 0.9 mg/dL (0.55-1.3); PHOSPHOROUS 3.8 mg/dL (2.5-4.9)
[2022-11-03 08:54] LABS: BILIRUBIN,TOTAL 0.1 mg/dL (0.2-1); TOT PROT 7.9 g/dl (6.4-8.2)
[2022-11-03] MEDS: CEFTRIAXONE 2 GM in DEXTROSE 5%-WATER 100 ML IVPB SCH (09:50)
[2022-11-03] MEDS: guaiFENesin/CODEINE 5 ML UNIT-DOSE CUPS PO PRN (09:50)
[2022-11-03] MEDS: PANTOPRAZOLE SODIUM 40 MG VIAL IVPUSH SCH (09:50)
[2022-11-03] MEDS: ENOXAPARIN NA (PORCINE) 40 MG/0.4 ML DISP.SYRIN SQ SCH (09:50)
[2022-11-03] MEDS: FLUTICASONE/UMECLIDIN/VILANTER(200-62.5-25 TRELEGY ELLIPTA) INAHLER IH SCH (09:55)
[2022-11-03] MEDS ORDERED: ALPRAZolam 0.25 MG TABLET PO PRN (10:08)
[2022-11-03] MEDS ORDERED: ALPRAZolam 1 MG TABLET PO PRN (11:43)
[2022-11-03] MEDS ORDERED: ALPRAZolam 0.25 MG TABLET PO ONE (14:50)
[2022-11-03] MEDS: MELATONIN 1 MG TABLET PO SCH (21:30)
[2022-11-03] MEDS: ALPRAZolam 0.25 MG TABLET PO PRN (21:30)
[2022-11-04] MEDS: methylPREDNISolone NA SUCC 40 MG/1 ML VIAL IVPUSH SCH ×3 (02:08→17:41)
[2022-11-04] MEDS: ALBUTEROL SO4 0.083% IH SOL 2.5 MG/3 ML VIAL.NEB. NEB PRN ×2 (04:20→17:53)
[2022-11-04] MEDS: ACETAMINOPHEN 325 MG TABLET (FP) PO PRN ×3 (06:34→21:26)
[2022-11-04 08:15] LABS: HEMATOCRIT 38.7 % (35.4-49); HEMOGLOBIN 12.8 GM/dL (11.7-16.9); MCH 30.2 pg (25.7-33.7); MEAN CELL VOLUME 91.5 fl (80-96); MEAN PLT VOLUME 7.1 fl (7.5-11.1); PLATELET COUNT 287 10^3/uL (134-434); RBC 4.23 M/mm3 (4.00-5.60); RDW 14.2 % (11.9-15.9); WHITE BLOOD COUNT 13.5 K/mm3 (4.0-10.0)
[2022-11-04 08:37] LABS: POTASSIUM 4.8 mmol/L (3.5-5.1)
[2022-11-04 08:40] LABS: ALBUMIN 3.1 g/dl (3.4-5.0); CALCIUM 8.6 mg/dL (8.5-10.1)
[2022-11-04 08:41] LABS: BLOOD UREA NITROGEN 23.4 mg/dL (7-18); MAGNESIUM 2.1 mg/dL (1.8-2.4)
[2022-11-04 08:44] LABS: CREATININE 0.8 mg/dL (0.55-1.3); PHOSPHOROUS 3.8 mg/dL (2.5-4.9)
[2022-11-04 08:45] LABS: BILIRUBIN,TOTAL 0.6 mg/dL (0.2-1); TOT PROT 7.9 g/dl (6.4-8.2)
[2022-11-04] MEDS: CEFTRIAXONE 2 GM in DEXTROSE 5%-WATER 100 ML IVPB SCH (09:05)
[2022-11-04] MEDS: PANTOPRAZOLE SODIUM 40 MG VIAL IVPUSH SCH (09:05)
[2022-11-04] MEDS: ENOXAPARIN NA (PORCINE) 40 MG/0.4 ML DISP.SYRIN SQ SCH (09:06)
[2022-11-04] MEDS: ALPRAZolam 0.25 MG TABLET PO PRN ×2 (09:30→21:24)
[2022-11-04] MEDS: FLUTICASONE/UMECLIDIN/VILANTER(200-62.5-25 TRELEGY ELLIPTA) INAHLER IH SCH (10:00)
[2022-11-04] MEDS ORDERED: methylPREDNISolone NA SUCC 40 MG/1 ML VIAL IVPUSH SCH (10:00)
[2022-11-05] MEDS: MELATONIN 1 MG TABLET PO SCH ×2 (00:42→21:25)
[2022-11-05] MEDS: methylPREDNISolone NA SUCC 40 MG/1 ML VIAL IVPUSH SCH ×3 (01:32→17:14)
[2022-11-05 08:40] LABS: BASO % 0.1 % (0-2.0); HEMATOCRIT 39.3 % (35.4-49); HEMOGLOBIN 13.2 GM/dL (11.7-16.9); LYMPH % 4.9 % (8-40); MCH 30.9 pg (25.7-33.7); MCHC 33.6 g/dl (32.0-35.9); MEAN CELL VOLUME 91.9 fl (80-96); MEAN PLT VOLUME 7.6 fl (7.5-11.1); MONO % 5.7 % (3.8-10.2); NEUT % 89.3 % (42.8-82.8); PLATELET COUNT 302 10^3/uL (134-434); RBC 4.28 M/mm3 (4.00-5.60); RDW 14.5 % (11.9-15.9); WHITE BLOOD COUNT 13.2 K/mm3 (4.0-10.0)
[2022-11-05 08:48] LABS: ALBUMIN 3.2 g/dl (3.4-5.0)
[2022-11-05 08:49] LABS: BLOOD UREA NITROGEN 25.1 mg/dL (7-18); MAGNESIUM 2.2 mg/dL (1.8-2.4)
[2022-11-05 08:51] LABS: CREATININE 0.8 mg/dL (0.55-1.3); PHOSPHOROUS 3.6 mg/dL (2.5-4.9)
[2022-11-05 08:53] LABS: BILIRUBIN,TOTAL 0.2 mg/dL (0.2-1)
[2022-11-05 09:12] LABS: ARTERIAL BLD GAS O2 SATURATION 98.7 % (95-98); ARTERIAL BLOOD GAS BASE EXCESS 8.4 mmol/L (-2-2); ARTERIAL BLOOD GAS pH 7.333 (7.350-7.450)
[2022-11-05 09:17] LABS: ALLENS TEST POSITIVE; VENT MODE S/T
[2022-11-05 09:18] LABS: VENT RATE 12
[2022-11-05] MEDS: CEFTRIAXONE 2 GM in DEXTROSE 5%-WATER 100 ML IVPB SCH (10:00)
[2022-11-05] MEDS: ENOXAPARIN NA (PORCINE) 40 MG/0.4 ML DISP.SYRIN SQ SCH (10:00)
[2022-11-05] MEDS: PANTOPRAZOLE SODIUM 40 MG VIAL IVPUSH SCH (10:00)
[2022-11-05] MEDS: FLUTICASONE/UMECLIDIN/VILANTER(200-62.5-25 TRELEGY ELLIPTA) INAHLER IH SCH (10:19)
[2022-11-05] MEDS: ALBUTEROL SO4 0.083% IH SOL 2.5 MG/3 ML VIAL.NEB. NEB PRN (11:55)
[2022-11-05] MEDS: ALPRAZolam 0.25 MG TABLET PO PRN ×2 (11:59→21:24)
[2022-11-05] MEDS ORDERED: MAGNESIUM SULF 50% (8.12 MEQ/2 ML-1 GM VIAL) IVPB ONE (12:15)
[2022-11-05] MEDS: ALBUTEROL SO4 2.5/IPRATROPIUM 0.5 INH SOL 3 ML VIAL.NEB. NEB SCH ×3 (12:30→20:05)
[2022-11-05] MEDS ORDERED: ETHAMBUTOL HCL 100 MG TABLET PO SCH (16:00)
[2022-11-05] MEDS: AZITHROMYCIN IVPB 500 MG/250 ML BAG IVPB SCH (16:24)
[2022-11-05] MEDS: ETHAMBUTOL HCL PO SCH (17:40)
[2022-11-05] MEDS: RIFAMPIN 300 MG CAPSULE PO SCH (17:42)
[2022-11-05] MEDS: ACETAMINOPHEN 325 MG TABLET (FP) PO PRN (21:25)
[2022-11-06] MEDS: methylPREDNISolone NA SUCC 40 MG/1 ML VIAL IVPUSH SCH ×3 (03:17→21:22)
[2022-11-06 07:49] LABS: HEMATOCRIT 36.4 % (35.4-49); HEMOGLOBIN 12.3 GM/dL (11.7-16.9); MCH 31.2 pg (25.7-33.7); MCHC 33.7 g/dl (32.0-35.9); MEAN CELL VOLUME 92.4 fl (80-96); MEAN PLT VOLUME 7.8 fl (7.5-11.1); PLATELET COUNT 244 10^3/uL (134-434); RBC 3.94 M/mm3 (4.00-5.60); RDW 13.9 % (11.9-15.9); WHITE BLOOD COUNT 9.5 K/mm3 (4.0-10.0)
[2022-11-06 08:09] LABS: POTASSIUM 5.1 mmol/L (3.5-5.1)
[2022-11-06 08:14] LABS: CALCIUM 8.6 mg/dL (8.5-10.1)
[2022-11-06 08:15] LABS: ALBUMIN 2.9 g/dl (3.4-5.0); BLOOD UREA NITROGEN 26.4 mg/dL (7-18); MAGNESIUM 2.4 mg/dL (1.8-2.4)
[2022-11-06 08:17] LABS: CREATININE 0.7 mg/dL (0.55-1.3)
[2022-11-06 08:18] LABS: PHOSPHOROUS 3.6 mg/dL (2.5-4.9)
[2022-11-06 08:19] LABS: BILIRUBIN,TOTAL 0.6 mg/dL (0.2-1); TOT PROT 7.2 g/dl (6.4-8.2)
[2022-11-06] MEDS: ALBUTEROL SO4 2.5/IPRATROPIUM 0.5 INH SOL 3 ML VIAL.NEB. NEB SCH ×5 (08:40→23:58)
[2022-11-06] MEDS: CEFTRIAXONE 2 GM in DEXTROSE 5%-WATER 100 ML IVPB SCH (09:07)
[2022-11-06] MEDS: PANTOPRAZOLE 40 MG TABLET PO SCH (09:09)
[2022-11-06] MEDS: ETHAMBUTOL HCL PO SCH (09:09)
[2022-11-06] MEDS: ENOXAPARIN NA (PORCINE) 40 MG/0.4 ML DISP.SYRIN SQ SCH ×2 (09:09→09:24)
[2022-11-06] MEDS: RIFAMPIN 300 MG CAPSULE PO SCH (09:10)
[2022-11-06] MEDS: FLUTICASONE/UMECLIDIN/VILANTER(200-62.5-25 TRELEGY ELLIPTA) INAHLER IH SCH (09:35)
[2022-11-06] MEDS: AZITHROMYCIN IVPB 500 MG/250 ML BAG IVPB SCH (10:43)
[2022-11-06 11:03] LABS: ARTERIAL BLD GAS O2 SATURATION 97.6 % (95-98); ARTERIAL BLOOD GAS PO2 110.4 mmHg (80-100); ARTERIAL BLOOD GAS pH 7.342 (7.350-7.450)
[2022-11-06 11:05] LABS: ALLENS TEST POSITIVE
[2022-11-06 11:06] LABS: VENT RATE 12
[2022-11-06] MEDS: ALPRAZolam 0.25 MG TABLET PO PRN ×2 (12:51→22:28)
[2022-11-06] MEDS ORDERED: LORazepam 2 MG/ML SDV VIAL IVPUSH ONE (14:30)
[2022-11-06] MEDS ORDERED: LORazepam 2 MG/ML SDV VIAL IVPUSH PRN (17:14)
[2022-11-06] MEDS: amLODIPine BESYLATE 10 MG TABLET (FP) PO SCH (18:53)
[2022-11-06] MEDS: MELATONIN 1 MG TABLET PO SCH (21:22)
[2022-11-07] MEDS: ALBUTEROL SO4 2.5/IPRATROPIUM 0.5 INH SOL 3 ML VIAL.NEB. NEB SCH ×5 (04:00→20:35)
[2022-11-07 07:05] LABS: HEMATOCRIT 37.6 % (35.4-49); HEMOGLOBIN 12.6 GM/dL (11.7-16.9); MCH 30.6 pg (25.7-33.7); MCHC 33.5 g/dl (32.0-35.9); MEAN CELL VOLUME 91.2 fl (80-96); MEAN PLT VOLUME 7.8 fl (7.5-11.1); PLATELET COUNT 267 10^3/uL (134-434); RBC 4.12 M/mm3 (4.00-5.60); RDW 13.8 % (11.9-15.9); WHITE BLOOD COUNT 12.6 K/mm3 (4.0-10.0)
[2022-11-07 07:32] LABS: POTASSIUM 4.5 mmol/L (3.5-5.1)
[2022-11-07 07:36] LABS: CALCIUM 8.9 mg/dL (8.5-10.1)
[2022-11-07 07:37] LABS: ALBUMIN 3.2 g/dl (3.4-5.0); BLOOD UREA NITROGEN 26.4 mg/dL (7-18); MAGNESIUM 2.4 mg/dL (1.8-2.4)
[2022-11-07 07:40] LABS: CREATININE 0.6 mg/dL (0.55-1.3); PHOSPHOROUS 2.2 mg/dL (2.5-4.9)
[2022-11-07 07:41] LABS: BILIRUBIN,TOTAL 0.4 mg/dL (0.2-1); TOT PROT 7.5 g/dl (6.4-8.2)
[2022-11-07] MEDS: ENOXAPARIN NA (PORCINE) 40 MG/0.4 ML DISP.SYRIN SQ SCH (09:21)
[2022-11-07] MEDS: methylPREDNISolone NA SUCC 40 MG/1 ML VIAL IVPUSH SCH (09:21)
[2022-11-07] MEDS: amLODIPine BESYLATE 10 MG TABLET (FP) PO SCH (09:22)
[2022-11-07] MEDS: RIFAMPIN 300 MG CAPSULE PO SCH (09:22)
[2022-11-07] MEDS: ETHAMBUTOL HCL PO SCH (09:22)
[2022-11-07] MEDS: AZITHROMYCIN IVPB 500 MG/250 ML BAG IVPB SCH (09:22)
[2022-11-07] MEDS: PANTOPRAZOLE 40 MG TABLET PO SCH (09:22)
[2022-11-07 09:23] LABS: ARTERIAL BLD GAS O2 SATURATION 96.5 % (95-98); ARTERIAL BLOOD GAS BASE EXCESS 18.4 mmol/L (-2-2); ARTERIAL BLOOD GAS PO2 92.9 mmHg (80-100); ARTERIAL BLOOD GAS pH 7.373 (7.350-7.450)
[2022-11-07 09:24] LABS: ALLENS TEST POSITIVE
[2022-11-07 09:25] LABS: VENT MODE HFNC
[2022-11-07] MEDS: FLUTICASONE/UMECLIDIN/VILANTER(200-62.5-25 TRELEGY ELLIPTA) INAHLER IH SCH (10:34)
[2022-11-07] MEDS ORDERED: HALOPERIDOL LACTATE 5 MG/ML IM ONE ×2 (13:37)
[2022-11-07] MEDS: MELATONIN 1 MG TABLET PO SCH (22:18)
[2022-11-07] MEDS: QUEtiapine FUMARATE 25 MG TABLET PO SCH (22:19)
[2022-11-08] MEDS: ALBUTEROL SO4 2.5/IPRATROPIUM 0.5 INH SOL 3 ML VIAL.NEB. NEB SCH ×6 (00:04→20:40)
[2022-11-08 06:19] LABS: HEMATOCRIT 38.5 % (35.4-49); HEMOGLOBIN 12.9 GM/dL (11.7-16.9); MCH 30.6 pg (25.7-33.7); MCHC 33.5 g/dl (32.0-35.9); MEAN CELL VOLUME 91.1 fl (80-96); MEAN PLT VOLUME 7.7 fl (7.5-11.1); PLATELET COUNT 278 10^3/uL (134-434); RBC 4.22 M/mm3 (4.00-5.60); RDW 13.8 % (11.9-15.9); WHITE BLOOD COUNT 11.1 K/mm3 (4.0-10.0)
[2022-11-08 06:40] LABS: CHLORIDE 94 mmol/L (98-107); POTASSIUM 4.1 mmol/L (3.5-5.1); SODIUM 140 mmol/L (136-145)
[2022-11-08 06:43] LABS: ALBUMIN 3.3 g/dl (3.4-5.0); BLOOD UREA NITROGEN 26.3 mg/dL (7-18); GLUCOSE,RANDOM 167 mg/dL (74-106); MAGNESIUM 2.2 mg/dL (1.8-2.4)
[2022-11-08 06:45] LABS: CREATININE 0.8 mg/dL (0.55-1.3)
[2022-11-08 06:46] LABS: PHOSPHOROUS 2.4 mg/dL (2.5-4.9); SGOT/AST 30 U/L (15-37); SGPT/ALT 60 U/L (13-61)
[2022-11-08 06:47] LABS: BILIRUBIN,TOTAL 0.4 mg/dL (0.2-1); TOT PROT 7.8 g/dl (6.4-8.2)
[2022-11-08 06:48] LABS: ALK PHOS 83 U/L (45-117)
[2022-11-08 07:32] LABS: ANION GAP 1 MMOL/L (8-16); CO2 > 45 mmol/L (21-32)
[2022-11-08] MEDS: ALBUTEROL SO4 0.083% IH SOL 2.5 MG/3 ML VIAL.NEB. NEB PRN (08:00)
[2022-11-08] MEDS ORDERED: methylPREDNISolone NA SUCC 40 MG/1 ML VIAL IVPUSH ONE (08:10)
[2022-11-08] MEDS: methylPREDNISolone NA SUCC 40 MG/1 ML VIAL IVPUSH SCH ×2 (08:18→12:18)
[2022-11-08] MEDS: RIFAMPIN 300 MG CAPSULE PO SCH (09:59)
[2022-11-08] MEDS: amLODIPine BESYLATE 10 MG TABLET (FP) PO SCH (10:00)
[2022-11-08] MEDS: PANTOPRAZOLE 40 MG TABLET PO SCH (10:00)
[2022-11-08] MEDS: ETHAMBUTOL HCL PO SCH (10:00)
[2022-11-08] MEDS: ENOXAPARIN NA (PORCINE) 40 MG/0.4 ML DISP.SYRIN SQ SCH (10:01)
[2022-11-08] MEDS: AZITHROMYCIN IVPB 500 MG/250 ML BAG IVPB SCH (10:01)
[2022-11-08] MEDS: FLUTICASONE/UMECLIDIN/VILANTER(200-62.5-25 TRELEGY ELLIPTA) INAHLER IH SCH (10:02)
[2022-11-08] MEDS ORDERED: PIPERACILLIN/TAZOB 4.5 GM 4.5 GM in DEXTROSE 5%-WATER 100 ML IVPB SCH (11:00)
[2022-11-08] MEDS: PIPERACILLIN/TAZOB 4.5 GM 4.5 GM in DEXTROSE 5%-WATER 100 ML IVPB SCH ×2 (12:17→17:52)
[2022-11-08] MEDS: QUEtiapine FUMARATE 25 MG TABLET PO SCH (21:48)
[2022-11-08] MEDS: MELATONIN 1 MG TABLET PO SCH (21:48)
[2022-11-09] MEDS: ALBUTEROL SO4 2.5/IPRATROPIUM 0.5 INH SOL 3 ML VIAL.NEB. NEB SCH ×6 (00:25→20:21)
[2022-11-09] MEDS: PIPERACILLIN/TAZOB 4.5 GM 4.5 GM in DEXTROSE 5%-WATER 100 ML IVPB SCH (02:30)
[2022-11-09 08:07] LABS: HEMATOCRIT 33.8 % (35.4-49); HEMOGLOBIN 11.3 GM/dL (11.7-16.9); MCHC 33.5 g/dl (32.0-35.9); MEAN CELL VOLUME 92.4 fl (80-96); MEAN PLT VOLUME 8.1 fl (7.5-11.1); PLATELET COUNT 256 10^3/uL (134-434); RBC 3.66 M/mm3 (4.00-5.60)
[2022-11-09 08:40] LABS: ALBUMIN 2.9 g/dl (3.4-5.0); BLOOD UREA NITROGEN 20.3 mg/dL (7-18); CALCIUM 8.5 mg/dL (8.5-10.1); MAGNESIUM 2.2 mg/dL (1.8-2.4)
[2022-11-09 08:43] LABS: CREATININE 0.8 mg/dL (0.55-1.3); PHOSPHOROUS 2.6 mg/dL (2.5-4.9)
[2022-11-09 08:45] LABS: BILIRUBIN,TOTAL 0.5 mg/dL (0.2-1); TOT PROT 6.6 g/dl (6.4-8.2)
[2022-11-09] MEDS: PANTOPRAZOLE 40 MG TABLET PO SCH (09:25)
[2022-11-09] MEDS: ENOXAPARIN NA (PORCINE) 40 MG/0.4 ML DISP.SYRIN SQ SCH (09:25)
[2022-11-09] MEDS: amLODIPine BESYLATE 10 MG TABLET (FP) PO SCH (09:26)
[2022-11-09] MEDS: ETHAMBUTOL HCL PO SCH (09:26)
[2022-11-09] MEDS: RIFAMPIN 300 MG CAPSULE PO SCH (09:27)
[2022-11-09] MEDS: methylPREDNISolone NA SUCC 40 MG/1 ML VIAL IVPUSH SCH (09:28)
[2022-11-09] MEDS: AZITHROMYCIN IVPB 500 MG/250 ML BAG IVPB SCH (09:28)
[2022-11-09] MEDS: FLUTICASONE/UMECLIDIN/VILANTER(200-62.5-25 TRELEGY ELLIPTA) INAHLER IH SCH (09:54)
[2022-11-09] MEDS ORDERED: predniSONE 20 MG TABLET (UD) PO ONE (13:45)
[2022-11-09] MEDS: PIPERACILLIN/TAZOB 3.375 GM 3.375 GM in DEXTROSE 5%-WATER - 50 ML IVPB SCH (17:39)
[2022-11-09] MEDS: MELATONIN 1 MG TABLET PO SCH (22:26)
[2022-11-09] MEDS: QUEtiapine FUMARATE 25 MG TABLET PO SCH (22:28)
[2022-11-10] MEDS: ALBUTEROL SO4 2.5/IPRATROPIUM 0.5 INH SOL 3 ML VIAL.NEB. NEB SCH ×6 (00:33→20:05)
[2022-11-10] MEDS: PIPERACILLIN/TAZOB 3.375 GM 3.375 GM in DEXTROSE 5%-WATER - 50 ML IVPB SCH ×3 (01:17→19:15)
[2022-11-10 08:39] LABS: HEMATOCRIT 36.2 % (35.4-49); HEMOGLOBIN 11.7 GM/dL (11.7-16.9); MCH 29.9 pg (25.7-33.7); MCHC 32.4 g/dl (32.0-35.9); MEAN CELL VOLUME 92.1 fl (80-96); MEAN PLT VOLUME 7.8 fl (7.5-11.1); PLATELET COUNT 260 10^3/uL (134-434); RBC 3.93 M/mm3 (4.00-5.60); RDW 14.1 % (11.9-15.9); WHITE BLOOD COUNT 8.3 K/mm3 (4.0-10.0)
[2022-11-10 08:43] LABS: POTASSIUM 3.9 mmol/L (3.5-5.1)
[2022-11-10 09:10] LABS: BLOOD UREA NITROGEN 14.4 mg/dL (7-18); CALCIUM 8.8 mg/dL (8.5-10.1)
[2022-11-10 09:11] LABS: MAGNESIUM 2.1 mg/dL (1.8-2.4)
[2022-11-10 09:13] LABS: CREATININE 0.7 mg/dL (0.55-1.3); PHOSPHOROUS 2.7 mg/dL (2.5-4.9)
[2022-11-10 09:15] LABS: BILIRUBIN,TOTAL 0.3 mg/dL (0.2-1)
[2022-11-10 09:18] LABS: TOT PROT 6.6 g/dl (6.4-8.2)
[2022-11-10] MEDS: amLODIPine BESYLATE 10 MG TABLET (FP) PO SCH (09:59)
[2022-11-10] MEDS: PANTOPRAZOLE 40 MG TABLET PO SCH (09:59)
[2022-11-10] MEDS: guaiFENesin 600 MG TABLET.ER (FP) PO SCH ×2 (09:59→21:54)
[2022-11-10] MEDS: predniSONE 20 MG TABLET (UD) PO SCH (09:59)
[2022-11-10] MEDS: AZITHROMYCIN IVPB 500 MG/250 ML BAG IVPB SCH (10:00)
[2022-11-10] MEDS: RIFAMPIN 300 MG CAPSULE PO SCH (10:01)
[2022-11-10] MEDS: ETHAMBUTOL HCL PO SCH (10:01)
[2022-11-10] MEDS: FLUTICASONE/UMECLIDIN/VILANTER(200-62.5-25 TRELEGY ELLIPTA) INAHLER IH SCH (10:02)
[2022-11-10] MEDS: ENOXAPARIN NA (PORCINE) 40 MG/0.4 ML DISP.SYRIN SQ SCH (10:03)
[2022-11-10] MEDS: ALBUTEROL SO4 0.083% IH SOL 2.5 MG/3 ML VIAL.NEB. NEB PRN (15:59)
[2022-11-10] MEDS: QUEtiapine FUMARATE 25 MG TABLET PO SCH (21:54)
[2022-11-10] MEDS: MELATONIN 1 MG TABLET PO SCH (21:54)
[2022-11-11] MEDS: PIPERACILLIN/TAZOB 3.375 GM 3.375 GM in DEXTROSE 5%-WATER - 50 ML IVPB SCH ×3 (01:43→17:36)
[2022-11-11] MEDS: ALBUTEROL SO4 2.5/IPRATROPIUM 0.5 INH SOL 3 ML VIAL.NEB. NEB SCH ×6 (04:00→20:52)
[2022-11-11 07:33] LABS: POTASSIUM 4.2 mmol/L (3.5-5.1)
[2022-11-11 07:37] LABS: CALCIUM 8.3 mg/dL (8.5-10.1)
[2022-11-11 07:39] LABS: ALBUMIN 2.7 g/dl (3.4-5.0); BLOOD UREA NITROGEN 14.9 mg/dL (7-18); MAGNESIUM 1.9 mg/dL (1.8-2.4)
[2022-11-11 07:41] LABS: CREATININE 0.7 mg/dL (0.55-1.3); PHOSPHOROUS 2.8 mg/dL (2.5-4.9)
[2022-11-11 07:43] LABS: BILIRUBIN,TOTAL 0.6 mg/dL (0.2-1); TOT PROT 6.4 g/dl (6.4-8.2)
[2022-11-11 08:12] LABS: HEMATOCRIT 35.2 % (35.4-49); HEMOGLOBIN 11.5 GM/dL (11.7-16.9); MCH 30.2 pg (25.7-33.7); MCHC 32.7 g/dl (32.0-35.9); MEAN CELL VOLUME 92.3 fl (80-96); MEAN PLT VOLUME 7.9 fl (7.5-11.1); PLATELET COUNT 255 10^3/uL (134-434); RBC 3.81 M/mm3 (4.00-5.60); RDW 14.2 % (11.9-15.9); WHITE BLOOD COUNT 10.4 K/mm3 (4.0-10.0)
[2022-11-11] MEDS: ENOXAPARIN NA (PORCINE) 40 MG/0.4 ML DISP.SYRIN SQ SCH (10:41)
[2022-11-11] MEDS: PANTOPRAZOLE 40 MG TABLET PO SCH (10:43)
[2022-11-11] MEDS: guaiFENesin 600 MG TABLET.ER (FP) PO SCH ×2 (10:43→21:55)
[2022-11-11] MEDS: amLODIPine BESYLATE 10 MG TABLET (FP) PO SCH (10:43)
[2022-11-11] MEDS: predniSONE 20 MG TABLET (UD) PO SCH (10:43)
[2022-11-11] MEDS: ETHAMBUTOL HCL PO SCH (10:45)
[2022-11-11] MEDS: RIFAMPIN 300 MG CAPSULE PO SCH (10:46)
[2022-11-11] MEDS: AZITHROMYCIN IVPB 500 MG/250 ML BAG IVPB SCH (11:48)
[2022-11-11] MEDS: FLUTICASONE/UMECLIDIN/VILANTER(200-62.5-25 TRELEGY ELLIPTA) INAHLER IH SCH (11:53)
[2022-11-11] MEDS: ACETAMINOPHEN 325 MG TABLET (FP) PO PRN (15:47)
[2022-11-11] MEDS ORDERED: PIPERACILLIN/TAZOBACTAM 3.375 GM VIAL IVPB ONE (17:38)
[2022-11-11] MEDS: MELATONIN 1 MG TABLET PO SCH (21:55)
[2022-11-11] MEDS: QUEtiapine FUMARATE 25 MG TABLET PO SCH (21:56)
[2022-11-12] MEDS: ALBUTEROL SO4 2.5/IPRATROPIUM 0.5 INH SOL 3 ML VIAL.NEB. NEB SCH ×6 (00:33→19:50)
[2022-11-12] MEDS: PIPERACILLIN/TAZOB 3.375 GM 3.375 GM in DEXTROSE 5%-WATER - 50 ML IVPB SCH ×3 (01:58→17:48)
[2022-11-12] MEDS: ENOXAPARIN NA (PORCINE) 40 MG/0.4 ML DISP.SYRIN SQ SCH (11:00)
[2022-11-12] MEDS: ETHAMBUTOL HCL PO SCH (11:00)
[2022-11-12] MEDS: PANTOPRAZOLE 40 MG TABLET PO SCH (11:00)
[2022-11-12] MEDS: AZITHROMYCIN IVPB 500 MG/250 ML BAG IVPB SCH (11:00)
[2022-11-12] MEDS: amLODIPine BESYLATE 10 MG TABLET (FP) PO SCH (11:00)
[2022-11-12] MEDS: guaiFENesin 600 MG TABLET.ER (FP) PO SCH ×2 (11:00→21:02)
[2022-11-12] MEDS: RIFAMPIN 300 MG CAPSULE PO SCH (11:03)
[2022-11-12] MEDS: FLUTICASONE/UMECLIDIN/VILANTER(200-62.5-25 TRELEGY ELLIPTA) INAHLER IH SCH (11:04)
[2022-11-12] MEDS: predniSONE 20 MG TABLET (UD) PO SCH (11:07)
[2022-11-12] MEDS: QUEtiapine FUMARATE 25 MG TABLET PO SCH (21:02)
[2022-11-12] MEDS: MELATONIN 1 MG TABLET PO SCH (21:02)
[2022-11-13] MEDS: PIPERACILLIN/TAZOB 3.375 GM 3.375 GM in DEXTROSE 5%-WATER - 50 ML IVPB SCH ×2 (02:41→09:50)
[2022-11-13] MEDS: ALBUTEROL SO4 2.5/IPRATROPIUM 0.5 INH SOL 3 ML VIAL.NEB. NEB SCH ×6 (04:00→20:42)
[2022-11-13 07:50] LABS: HEMATOCRIT 34.3 % (35.4-49); HEMOGLOBIN 11.3 GM/dL (11.7-16.9); MCH 30.6 pg (25.7-33.7); MEAN CELL VOLUME 92.5 fl (80-96); MEAN PLT VOLUME 8.7 fl (7.5-11.1); PLATELET COUNT 274 10^3/uL (134-434); RDW 13.9 % (11.9-15.9); WHITE BLOOD COUNT 9.3 K/mm3 (4.0-10.0)
[2022-11-13 08:11] LABS: POTASSIUM 4.6 mmol/L (3.5-5.1)
[2022-11-13 08:21] LABS: ALBUMIN 2.8 g/dl (3.4-5.0); BLOOD UREA NITROGEN 14.6 mg/dL (7-18); CALCIUM 8.7 mg/dL (8.5-10.1)
[2022-11-13 08:22] LABS: CREATININE 0.8 mg/dL (0.55-1.3)
[2022-11-13 08:23] LABS: BILIRUBIN,TOTAL 0.2 mg/dL (0.2-1); TOT PROT 6.6 g/dl (6.4-8.2)
[2022-11-13] MEDS: ENOXAPARIN NA (PORCINE) 40 MG/0.4 ML DISP.SYRIN SQ SCH (09:46)
[2022-11-13] MEDS: ETHAMBUTOL HCL PO SCH (09:47)
[2022-11-13] MEDS: predniSONE 20 MG TABLET (UD) PO SCH (09:49)
[2022-11-13] MEDS: amLODIPine BESYLATE 10 MG TABLET (FP) PO SCH (09:49)
[2022-11-13] MEDS: guaiFENesin 600 MG TABLET.ER (FP) PO SCH ×2 (09:50→22:38)
[2022-11-13] MEDS: PANTOPRAZOLE 40 MG TABLET PO SCH (09:50)
[2022-11-13] MEDS: AZITHROMYCIN IVPB 500 MG/250 ML BAG IVPB SCH (09:52)
[2022-11-13] MEDS: FLUTICASONE/UMECLIDIN/VILANTER(200-62.5-25 TRELEGY ELLIPTA) INAHLER IH SCH (09:56)
[2022-11-13] MEDS: RIFAMPIN 300 MG CAPSULE PO SCH (09:56)
[2022-11-13] MEDS: MELATONIN 1 MG TABLET PO SCH (22:38)
[2022-11-13] MEDS: QUEtiapine FUMARATE 25 MG TABLET PO SCH (22:39)
[2022-11-14] MEDS: ALBUTEROL SO4 2.5/IPRATROPIUM 0.5 INH SOL 3 ML VIAL.NEB. NEB SCH ×6 (04:17→20:30)
[2022-11-14 08:05] LABS: HEMATOCRIT 34.6 % (35.4-49); HEMOGLOBIN 11.5 GM/dL (11.7-16.9); MCH 30.7 pg (25.7-33.7); MCHC 33.3 g/dl (32.0-35.9); MEAN CELL VOLUME 92.2 fl (80-96); PLATELET COUNT 328 10^3/uL (134-434); RBC 3.76 M/mm3 (4.00-5.60); RDW 14.2 % (11.9-15.9)
[2022-11-14 08:17] LABS: POTASSIUM 4.6 mmol/L (3.5-5.1)
[2022-11-14 08:21] LABS: ALBUMIN 2.8 g/dl (3.4-5.0)
[2022-11-14 08:22] LABS: CALCIUM 9.3 mg/dL (8.5-10.1)
[2022-11-14 08:23] LABS: BLOOD UREA NITROGEN 13.4 mg/dL (7-18)
[2022-11-14 08:24] LABS: CREATININE 0.7 mg/dL (0.55-1.3)
[2022-11-14 08:26] LABS: BILIRUBIN,TOTAL 0.2 mg/dL (0.2-1); TOT PROT 6.8 g/dl (6.4-8.2)
[2022-11-14] MEDS: predniSONE 20 MG TABLET (UD) PO SCH (09:22)
[2022-11-14] MEDS: amLODIPine BESYLATE 10 MG TABLET (FP) PO SCH (09:22)
[2022-11-14] MEDS: PANTOPRAZOLE 40 MG TABLET PO SCH (09:22)
[2022-11-14] MEDS: guaiFENesin 600 MG TABLET.ER (FP) PO SCH ×2 (09:22→21:54)
[2022-11-14] MEDS: ETHAMBUTOL HCL PO SCH (09:23)
[2022-11-14] MEDS: ENOXAPARIN NA (PORCINE) 40 MG/0.4 ML DISP.SYRIN SQ SCH (09:23)
[2022-11-14] MEDS: RIFAMPIN 300 MG CAPSULE PO SCH (09:24)
[2022-11-14] MEDS: AZITHROMYCIN IVPB 500 MG/250 ML BAG IVPB SCH (09:25)
[2022-11-14] MEDS: FLUTICASONE/UMECLIDIN/VILANTER(200-62.5-25 TRELEGY ELLIPTA) INAHLER IH SCH (09:26)
[2022-11-14] MEDS: MELATONIN 1 MG TABLET PO SCH (21:53)
[2022-11-14] MEDS: QUEtiapine FUMARATE 25 MG TABLET PO SCH (21:54)
[2022-11-15] MEDS: ALBUTEROL SO4 2.5/IPRATROPIUM 0.5 INH SOL 3 ML VIAL.NEB. NEB SCH ×5 (03:44→15:25)
[2022-11-15 07:38] LABS: HEMATOCRIT 32.5 % (35.4-49); HEMOGLOBIN 10.8 GM/dL (11.7-16.9); MCH 30.5 pg (25.7-33.7); MCHC 33.2 g/dl (32.0-35.9); MEAN CELL VOLUME 91.9 fl (80-96); MEAN PLT VOLUME 8.2 fl (7.5-11.1); PLATELET COUNT 327 10^3/uL (134-434); RBC 3.54 M/mm3 (4.00-5.60); WHITE BLOOD COUNT 9.2 K/mm3 (4.0-10.0)
[2022-11-15 08:01] LABS: POTASSIUM 4.7 mmol/L (3.5-5.1)
[2022-11-15 08:15] LABS: CALCIUM 8.7 mg/dL (8.5-10.1); PHOSPHOROUS 3.5 mg/dL (2.5-4.9)
[2022-11-15 08:16] LABS: ALBUMIN 2.6 g/dl (3.4-5.0); BILIRUBIN,TOTAL 0.2 mg/dL (0.2-1); BLOOD UREA NITROGEN 13.7 mg/dL (7-18); CREATININE 0.7 mg/dL (0.55-1.3); MAGNESIUM 1.8 mg/dL (1.8-2.4); TOT PROT 6.4 g/dl (6.4-8.2)
[2022-11-15 09:01] VITALS: RESP 18
[2022-11-15] MEDS: predniSONE 20 MG TABLET (UD) PO SCH (09:06)
[2022-11-15] MEDS: ETHAMBUTOL HCL PO SCH (09:07)
[2022-11-15] MEDS: PANTOPRAZOLE 40 MG TABLET PO SCH (09:07)
[2022-11-15] MEDS: RIFAMPIN 300 MG CAPSULE PO SCH (09:07)
[2022-11-15] MEDS: amLODIPine BESYLATE 10 MG TABLET (FP) PO SCH (09:07)
[2022-11-15] MEDS: guaiFENesin 600 MG TABLET.ER (FP) PO SCH (09:07)
[2022-11-15] MEDS: ENOXAPARIN NA (PORCINE) 40 MG/0.4 ML DISP.SYRIN SQ SCH (09:08)
[2022-11-15] MEDS: FLUTICASONE/UMECLIDIN/VILANTER(200-62.5-25 TRELEGY ELLIPTA) INAHLER IH SCH (09:59)
[2022-11-15] MEDS: AZITHROMYCIN IVPB 500 MG/250 ML BAG IVPB SCH (10:00)
[2022-11-15 18:19] VITALS: BP 137/90; PULSE 97; TEMP 97.9
[2022-11-16] MEDS ORDERED: AZITHROMYCIN 250 MG TABLET PO SCH (10:00)
== END 2022-11-15 18:18 | disposition home or self-care (01) | DRG 720 ==
LOC: JER 09:22 → JERBED 13:48 → J8W 20:37 → J4S 11-02 02:28 → J4W 11-03 15:16
PROVIDERS: ADMIT Internal Medicine; ATTEND Internal Medicine
DX: A41.89 Other specified sepsis (principal); J96.01 Acute respiratory failure with hypoxia; J44.0 Chronic obstructive pulmonary disease with (acute) lower respiratory infection; J44.1 Chronic obstructive pulmonary disease with (acute) exacerbation; J18.9 Pneumonia, unspecified organism; J96.02 Acute respiratory failure with hypercapnia; R41.0 Disorientation, unspecified; I25.2 Old myocardial infarction; A31.0 Pulmonary mycobacterial infection; B44.9 Aspergillosis, unspecified; A15.9 Respiratory tuberculosis unspecified; I10 Essential (primary) hypertension; I25.10 Atherosclerotic heart disease of native coronary artery without angina pectoris; F17.200 Nicotine dependence, unspecified, uncomplicated; Z95.5 Presence of coronary angioplasty implant and graft
CPT/HCPCS: 0241U-QW; 36415; 36600; 71045-TC-FY; 71260-TC; 80053; 82803; 83735; 84100; 84484; 85025; 85027; 85610; 85730; 86480; 86606; 87040; 87070; 87077; 87081; 87116; 87205; 87206; 87305; 87389; 87449; 87556; 87899; 93005; 93010; 93306-TC; 94640; 94660; 94761; 97116-GP; 97163-GP; 99291; Q9967